=== PATIENT | male | born 1985 | race Caucasian/White ===

== ENCOUNTER 2024-08-03 17:49 | Emergency (ER) | payer BC ==
[2024-08-03] MEDS: Tetracaine HCl/PF 0.5% 4 ML Bottle EYERT STA (18:25)
== END 2024-08-03 19:15 | disposition home or self-care (01) ==
LOC: MW.ED 17:49
DX: S05.01XA Injury of conjunctiva and corneal abrasion without foreign body, right eye, initial encounter (principal); F17.210 Nicotine dependence, cigarettes, uncomplicated; W20.8XXA Other cause of strike by thrown, projected or falling object, initial encounter
CPT/HCPCS: 99282; 99283; J3490